=== PATIENT | male | born 1940 | race Caucasian/White ===

== ENCOUNTER → 2018-10-13 | Outpatient (CLI) | payer MEDICARE, OTHER ==
--- NOTE | 2018-10-13 17:25 | RAD ---
SHOULDER 2+V RIGHT History: Right shoulder pain.. No prior study for comparison. Severe degenerative changes at the glenohumeral joint. There is flattening and volume loss of the glenoid. Large inferior medial humeral head osteophyte. There is some deformity of the superior humeral head with hypertrophy at the greater tuberosity and lateral humeral head could be degenerative or related to old fracture. No evidence of an acute fracture. No dislocation. No significant soft tissue abnormality. IMPRESSION: Chronic findings, no evidence of acute fracture or dislocation. Severe primary osteoarthritis. Electronically signed by: Humphrey Joiner MD (10/13/2018 5:22 PM) [facility]
== END | disposition home or self-care (01) ==
LOC: PMG 16:43
PROVIDERS: ATTEND Registered Nurse
DX: M19.011 Primary osteoarthritis, right shoulder (principal); M25.711 Osteophyte, right shoulder; M89.311 Hypertrophy of bone, right shoulder
CPT/HCPCS: 73030